=== PATIENT | male | born 1985 | race Caucasian/White ===

== ENCOUNTER 2019-08-24 13:24 | Emergency (ER) | payer OTHER ==
[~2019-08-24] VITALS: Ht 172.7 cm; Wt 79.4 kg
[2019-08-24 13:45] VITALS: BP 127/82
== END 2019-08-24 13:49 | disposition home or self-care (01) ==
LOC: ER 13:24
DX: S62.632A Displaced fracture of distal phalanx of right middle finger, initial encounter for closed fracture (principal); W23.1XXA Caught, crushed, jammed, or pinched between stationary objects, initial encounter; Y99.0 Civilian activity done for income or pay
CPT/HCPCS: 99282